=== PATIENT | male | born 1950 | race Caucasian/White ===

== ENCOUNTER 2019-12-17 07:27 | Day surgery (SDC) | payer BC, MEDICARE ==
[~2019-12-17 07:27] MED LIST: Lidocaine 1% with EPINEPHrine 1:100,000 50 ML MDV ONE; Sodium Chloride 0.9% 10 ML ONE; Sodium Tetradecyl Sulfate 1% 20 MG/2 ML SDV ONE
[2019-12-17] MEDS ORDERED: Sodium Chloride 0.9% 1,000 ML IV SCH (08:30)
[2019-12-17] MEDS ORDERED: Midazolam 1 MG/ML 2 ML SDV ONE (08:32)
[2019-12-17] MEDS ORDERED: Propofol 200 MG/20 ML SDV ONE ×3 (08:32→10:21)
[2019-12-17] MEDS ORDERED: fentaNYL 100 MCG/2 ML SDV ONE (08:32)
[2019-12-17] MEDS ORDERED: Lidocaine 1% w/EPINEPHrine 50 ML, Sodium Bicarbonate 5 MEQ in Sodium Chloride 0.9% 950 ML INJECT ONE (08:45)
[2019-12-17] MEDS: Lidocaine 1% w/EPINEPHrine 50 ML, Sodium Bicarbonate 5 MEQ in Sodium Chloride 0.9% 950 ML INJECT ONE ×3 (10:15→11:04)
--- NOTE | 2019-12-17 19:31 | OR ---
DATE OF PROCEDURE: 12/17/2019 SURGEON: Layo Gonzalez MD PROCEDURES: 1. Radiofrequency ablation of left greater saphenous vein. 2. Radiofrequency ablation of right greater saphenous vein. 3. Sclerotherapy, left leg, multiple. 4. Sclerotherapy, right leg, multiple. 5. Compression wrapping, left leg ([id number]). 6. Compression wrap, right leg ([id number]). COMPLICATION: None. PENCIL INSPECTOR: None. ANESTHESIA: MAC. PREOPERATIVE DIAGNOSIS: Venous insufficiency with inflammation and pain. POSTOPERATIVE DIAGNOSIS: Venous insufficiency with inflammation and pain. RISKS: Risks, benefits, alternatives, and limitations including, but not limited to, infection, bleeding, chronic pain, chronic wounds, neuropathy type symptoms, and DVT formation were all explained to the patient and they wished to proceed. PROCEDURE IN DETAIL: The patient was placed in supine position. The left greater saphenous vein was identified first. This was accessed using a 21-gauge needle, then exchanged for a 35,000th wire, then exchanged for a 7-[place] sheath. The RFA probe was advanced to 3 cm from the saphenofemoral junction. Tumescent fluid was injected in a 1-cm jacket around this. This was verified a second and a third time. Direct even pressure was held as the probe was deployed x2 proximally and distally and x1 in all other segments. The sheath and device were then held and removed and Dermabond was applied after holding pressure for 7 minutes. The other leg was then performed in the same manner, same fashion, same technique, and the same sequence using the same equipment. Sclerotherapy was then performed in the left and right legs, 4 on the left, 6 on the right. This was always drawn back to ensure intravascular injection only and no more than 2 mL was injected in 1 location. Two-layer, two-stage compression wrapping was then performed in a distal to proximal gradient. This is a 20 mmHg pressure. This was a [id number] confirmation. The patient tolerated the procedure well. Of note, the right lesser saphenous vein and the left anterior accessory veins were not addressed during this case due to tortuosity. Layo Gonzalez MD /[id number]
== END 2019-12-17 11:44 | disposition home or self-care (01) ==
LOC: JP.SDS 07:27
PROVIDERS: ATTEND Surgery
DX: I87.2 Venous insufficiency (chronic) (peripheral) (principal); I80.03 Phlebitis and thrombophlebitis of superficial vessels of lower extremities, bilateral; G47.33 Obstructive sleep apnea (adult) (pediatric); E66.9 Obesity, unspecified; I10 Essential (primary) hypertension; I48.91 Unspecified atrial fibrillation; Z99.89 Dependence on other enabling machines and devices; Z68.36 Body mass index [BMI] 36.0-36.9, adult
CPT/HCPCS: 36475; J1642; J2250; J2704; J3010; J7030; J3490

== ENCOUNTER 2020-10-19 10:44 | Emergency (ER) | payer MEDICARE, OTHER ==
[2020-10-19] MEDS ORDERED: Diphtheria,Pertussis(Acell),Tetanus Vaccine 0.5 ML Syringe IM ONE (14:21)
--- NOTE | 2020-10-19 14:22 | EDM.PDOC ---
ED HPI GENERAL MEDICAL PROBLEM - General Chief Complaint: General Stated Complaint: FISH HOOK Time Seen by Provider: 10/19/20 13:05 - History of Present Illness INITIAL COMMENTS - FREE TEXT/NARRATIVE: This is a 70-year-old gentleman who presents concerns of having a trouble hook implanted in his right pointer finger. He was fishing earlier this morning when he snagged his finger with his lure. He attempted to remove the hook but was unable. He reports that his tetanus status is up-to-date. He is anticoagulated on Coumadin. Incidentally he notes a fall down several steps 3 days ago. He had a head strike and has had continued neck pain since this time. He has no numbness or weakness in the extremities. No headache. No vision changes. - Related Data Allergies Allergy/AdvReac Type Severity Reaction Status Date / Time No Known Allergies Allergy Verified 10/19/20 12:32 Home Meds: Home Meds Acetaminophen [Tylenol Extra Strength] 500 mg PO BEDTIME 12/13/19 [History] Ascorbic Acid [Vitamin C] 250 mg PO DAILY 12/13/19 [History] Cholecalciferol (Vitamin D3) [Vitamin D3] 1,000 unit PO DAILY 12/13/19 [History] Cider Vinegar [Apple Cider Vinegar] 300 mg PO DAILY 12/13/19 [History] Digoxin [Lanoxin] 125 mcg PO DAILY 12/13/19 [History] Fish Oil/[place]-3 Fatty Acids [Fish Oil 1,000 MG] 3 tab PO DAILY 12/13/19 [History] Furosemide [Lasix] 20 mg PO DAILY 12/13/19 [History] Glucosam/Chond/Collagen/Hyalur [Glucosamine Chondroitin] 1 each PO DAILY 12/13/19 [History] Metoprolol Succinate [Toprol Xl] 100 mg PO DAILY 12/13/19 [History] Saw/Vit E/Sod Nano/Lyc/Beta/Pyg [Prostate Health Caplet] 1 each PO DAILY 12/13/19 [History] Warfarin Sodium [Coumadin] 5 mg PO .Tuesday12/13/19 [History] Warfarin Sodium [Coumadin] 7.5 mg PO ASDIRECTED 12/13/19 [History] hydroCHLOROthiazide [Hydrochlorothiazide] 12.5 mg PO DAILY 12/13/19 [History] Sildenafil [Viagra] 100 mg PO BEDTIME PRN 12/17/19 [History] Past Medical History Cardiovascular History: Reports: Arrhythmia, Hypertension, Other (See Below) Other Cardiovascular History: a fib Hematologic History: Reports: Anticoagulation Therapy - Past Surgical History HEENT Surgical History: Reports: Tonsillectomy Male Surgical History: Reports: Vasectomy Musculoskeletal Surgical History: Reports: Knee Replacement Social & Family History - Tobacco Use Tobacco Use Status *Q: Never Tobacco User - Caffeine Use Caffeine Use: Reports: None ED ROS GENERAL - Review of Systems Review Of Systems: See Below Constitutional: Reports: No Symptoms HEENT: Reports: No Symptoms Respiratory: Reports: No Symptoms Cardiovascular: Reports: No Symptoms Endocrine: Reports: No Symptoms GI/Abdominal: Reports: No Symptoms : Reports: No Symptoms Musculoskeletal: Reports: Neck Pain Skin: Reports: Wound Neurological: Reports: No Symptoms Psychiatric: Reports: No Symptoms Hematologic/Lymphatic: Reports: No Symptoms Immunologic: Reports: No Symptoms ED EXAM, GENERAL - Physical Exam Exam: See Below Exam Limited By: No Limitations General Appearance: Alert, No Apparent Distress Nose: Normal Inspection Throat/Mouth: Normal Inspection Head: Atraumatic (Scattered superficial abrasion) Neck: Tender Lateral Respiratory/Chest: No Respiratory Distress GI/Abdominal: Soft, Non-Tender, No Distention Back Exam: Normal Inspection Extremities: Other (1 hook of treble hook impaled in the right pointer finger.) Neurological: Alert, Oriented Psychiatric: Normal Affect, Normal Mood Skin Exam: Warm, Dry ED GENERAL MEDICAL PROCEDURES - Additional/Other Procedure(s) Other (Free Text) Procedure(s): Foreign body removal: Digital block was performed of the right second digit using approximately 4 cc of 2% lidocaine. [place] was then grasped with a needle local truck driver and removed without incident. Wound was then copiously irrigated using tap water. Dressing was applied. Instructed on wound cares. Tetanus status up-to-date. Course - Vital Signs Last Recorded V/S: Last Vital Signs Temp 36.1 C 10/19/20 12:38 Pulse 77 10/19/20 12:38 Resp 14 10/19/20 12:38 BP 153/81 H 10/19/20 12:38 Pulse Ox 96 10/19/20 12:38 - Orders/Labs/Meds Meds: Medications Discontinued Medications Generic Name Dose Route Start Last Admin Trade Name Freq PRN Reason Stop Dose Admin Diphtheria/Tetanus/Acell Pertussis 0.5 ml 10/19/20 14:21 10/19/20 16:55 Diphtheria,Pertussis(Acell),Tetanus Vaccine 0.5 Ml Syringe IM 10/19/20 14:22 0.5 ml .ONCE ONE Administration - Re-Assessments/Exams Free Text/Narrative Re-Assessment/Exam: 70-year-old male presents with concerns of impaled fishhook in the right pointer finger. Removed after digital block without incident. He is managed on Coumadin. He reports a fall with head strike and persistent neck pain while coming down the steps couple days ago. Only trauma noted superficial abrasion on the scalp. Due to his anticoagulated status and persistent neck discomfort we decided to proceed with a CT of the head and neck. Patient is up-to-date on tetanus. He was signed out at the end of my clinical shift pending CT read with anticipated discharge. 10/20/20 13:47 Departure - Departure Time of Disposition: 14:30 Disposition: Home, Self-Care 01 Clinical Impression: Fish hook injury of finger Qualifiers: Encounter type: initial encounter Laterality: right Qualified Code(s): S69.91XA - Unspecified injury of right wrist, hand and finger(s), initial encounter - Discharge Information Instructions: Puncture Wound, [id number], Cervical Sprain, [id number] Referrals: PCP,None [Primary Care Provider] - Forms: ED Department Discharge Additional Instructions: Your CT scan is reassuring, I suspect you have some strain in your neck from your fall, it is safe to continue treating with Tylenol and ibuprofen. Please monitor the site of the fishhook for evidence of infection including redness, discharge or increased pain. If these develop see a physician. Thank you for trusting us to care for you today. Sepsis Event Note (ED) - Evaluation Sepsis Screening Result: No Definite Risk
--- NOTE | 2020-10-19 16:10 | CRLCT ---
INDICATION: Fall. Patient on Coumadin. TECHNIQUE: CT head without IV contrast. FINDINGS: Mild fluid and mucosal thickening in the ethmoidal and a lesser extent sphenoid sinuses. No intracranial hemorrhage, edema, or mass effect. Small foci of hyperdensity in the right frontal lobe only on image 50 tendon the periventricular left frontal lobe on image 15 are less evident on coronal imaging and probably artifactual. Venous sinuses are diffusely more dense than typical which could be related to dehydration but is nonspecific. Mild cerebral atrophy. Mild cerebellar atrophy. Patchy mild small-vessel ischemic disease. Remainder negative. IMPRESSION: 1. No definite acute intracranial disease including no definite intracranial hemorrhage. 2. The venous sinuses are diffusely more dense than typical which may be related to dehydration but is nonspecific 3. Other chronic intracranial disease as described above. 4. Mild sinusitis greatest in the ethmoidal sinuses. Please note that all CT scans at this facility use dose modulation, iterative reconstruction, and/or weight-based dosing when appropriate to reduce radiation dose to as low as reasonably achievable. Dictated by Yaniv Olvera MD @ 10/19/2020 4:09:[address] Yaniv Olvera @ Oct 19 2020 4:09PM
--- NOTE | 2020-10-19 16:18 | CRLCT ---
INDICATION: Gurpreet. Neck pain. TECHNIQUE: CT cervical spine performed without IV contrast including axial, coronal and sagittal images. FINDINGS: No acute fracture in cervical spine. Mild anterior subluxation of C4 on C5 likely chronic. Prominent ossific density along the odontoid and C1 likely degenerative and chronic. Moderately prominent degenerative changes in the cervical spine including hypertrophic changes, interspace narrowing and diffuse facet arthropathy. Moderate narrowing of the C6 and C7 interspaces and marked narrowing of the C5 interspace with hypertrophic changes. Osteopenia. Irregularity of the bones surrounding the C5 and C6 interspaces likely degenerative. Moderate cervical curve. Osteopenia. Moderate ossific density along the spinous prostheses of the lower cervical and upper thoracic spine likely degenerative. Mild to moderately prominent foraminal narrowing at scattered levels in the cervical spine related to facet arthropathy. Small low-density lesion in the left thyroid. Mild stranding in the soft tissues of the neck may be posttraumatic or related to edema. Remainder negative. IMPRESSION: 1. No acute fracture in cervical spine. 2. Mild anterior subluxation of C4 on C5 likely chronic. 3. Moderately prominent degenerative changes throughout the cervical spine as detailed above with multilevel foraminal narrowing due to prominent degenerative facet arthropathy. 4. Small low-density lesion left thyroid can be correlated thyroid ultrasound. 5. Very mild soft tissue stranding in the soft tissues of the neck bilaterally could be related to edema or soft tissue trauma. Other findings as above. Please note that all CT scans at this facility use dose modulation, iterative reconstruction, and/or weight-based dosing when appropriate to reduce radiation dose to as low as reasonably achievable. Dictated by Yaniv Olvera MD @ 10/19/2020 4:17:[address] Yaniv Olvera @ Oct 19 2020 4:17PM
== END 2020-10-19 17:00 | disposition home or self-care (01) ==
LOC: JP.ED 10:44
DX: S60.450A Superficial foreign body of right index finger, initial encounter (principal); S00.81XA Abrasion of other part of head, initial encounter; Z79.01 Long term (current) use of anticoagulants; Z23 Encounter for immunization; W45.8XXA Other foreign body or object entering through skin, initial encounter
CPT/HCPCS: 64450; 70450; 72125; 90471; 90715; 99283-25

== ENCOUNTER 2024-01-29 15:27 | Emergency (ER) | payer MEDICARE, OTHER | END 2024-01-29 16:35 | disposition home or self-care (01) | LOC: JP.ED 15:27 | DX: H11.31 Conjunctival hemorrhage, right eye (principal); I10 Essential (primary) hypertension; I48.91 Unspecified atrial fibrillation; Z79.899 Other long term (current) drug therapy; Z79.01 Long term (current) use of anticoagulants | CPT/HCPCS: 99283 ==